=== PATIENT | female | born 1985 | race Caucasian/White ===

== ENCOUNTER → 2017-01-27 | Outpatient (CLI) | payer BC ==
--- NOTE | 2017-01-27 13:17 | RAD ---
Left foot radiographs History: Left foot pain for one week, no known injury. Comparison: None. Findings: AP, lateral, and oblique views of the left foot. No acute fracture or dislocation is identified. No focal soft tissue swelling is seen. Impression: No acute osseous traumatic injury identified.
--- NOTE | 2017-01-27 13:23 | RAD ---
Lumbar spine radiographs History: Low back and left foot pain for one week. Comparison: None. Findings: AP and lateral views lumbar spine, 3 images. 5 lumbar type vertebral bodies are present. No acute fracture or malalignment is identified. No significant degeneration is seen. No spondylolysis or spondylolisthesis is appreciated. Impression: Unremarkable lumbar spine radiographs.
== END | disposition home or self-care (01) ==
LOC: DXRADRC 11:36
PROVIDERS: ATTEND Physician Assistant Medical
DX: M54.42 Lumbago with sciatica, left side (principal)
CPT/HCPCS: 72100; 73630